=== PATIENT | female | born 1965 | race Caucasian/White ===

== ENCOUNTER 2017-02-12 22:33 | Emergency (ER) | payer OTHER ==
--- NOTE | 2017-02-12 23:57 | ED NECK/BACK PAIN COMPLAINT ---
History of Present Illness General Chief Complaint: Low Back Pain/Injury Stated Complaint: LOW BACK PAIN RADIATES TOABD Source: patient, old records, friend Exam Limitations: no limitations Vital Signs & Intake/Output Vital Signs & Intake/Output Vital Signs Date Time Temp Pulse Resp B/P B/P Pulse O2 O2 Flow FiO2 Mean Ox Delivery Rate 02/13 0107 96.4 66 18 109/71 98 Room Air 02/12 2241 98.1 85 22 147/97 98 Allergies Coded Allergies: No Known Allergies (02/12/17) Reconcile Medications Ketorolac Tromethamine 10 MG TABLET 1 TAB PO Q6P PRN PAIN BRENDAN RECEIVED IV TORADOL IN THE ER. Triage Note: PER PT UNABLE TO GET COMF D/T BACK PAIN X 2 DAYS NO URINE CO, POINTS TO FLANK AREA. REPORTS ALEVE WITH NO RELIEF. Triage Nurses Notes Reviewed? yes HPI: Patient presents with right flank pain that radiates down to his groin. Symptoms are worsening over the past 2 days. The pain worsens when she bends over or sits down. The pain lessens when she stands up straight. Patient was gardening the day before the symptoms started. There is no dysuria or hematuria. There is no urinary frequency. There is no nausea or vomiting. The pain is aching in nature. She rates the pain at 7 out of 10. Past History Travel History Traveled to [place] past 21 day No Medical History Any Pertinent Medical History? see below for history Neurological: NONE EENT: NONE Cardiovascular: NONE Respiratory: NONE Gastrointestinal: NONE Hepatic: NONE Renal: KIDNEY STONES Musculoskeletal: NONE Psychiatric: NONE Endocrine: NONE Surgical History Surgical History: non-contributory Psychosocial History What is your primary language Spanish Tobacco Use: Never used ETOH Use: occasional use Illicit Drug Use: denies illicit drug use Family History Hx Contributory? No Review of Systems Review of Systems Constitutional: Reports: no symptoms. Eyes: Reports: no symptoms. Ears, Nose, Throat, Mouth: Reports: no symptoms. Respiratory: Reports: no symptoms. Cardiovascular: Reports: no symptoms. Gastrointestinal/Abdominal: Reports: no symptoms. Musculoskeletal: Reports: see HPI, back pain. Skin: Reports: no symptoms. Neurological/Psychological: Reports: no symptoms. All Other Systems: Reviewed and Negative Physical Exam Physical Exam General Appearance: well developed/nourished, alert, awake, anxious, mild distress Head: atraumatic Eyes: Bilateral: PERRL, EOMI. Ears, Nose, Throat, Mouth: hearing grossly normal Neck: normal inspection, supple, full range of motion, no midline tenderness Respiratory: normal breath sounds, chest non-tender, no respiratory distress, lungs clear Cardiovascular: regular rate/rhythm, normal peripheral pulses Gastrointestinal: normal bowel sounds, soft, non-tender Back: normal inspection, CVA tenderness (R) Extremities: normal range of motion Straight Leg Raising: Right: Negative. Left: Negative. Neurologic/Psych: awake, alert, oriented x 3, normal mood/affect Skin: intact, normal color, warm/dry Progress Differential Diagnosis: herniated disc, myofascial strain, sciatica, T/L spine injury, ureterolithiasis Plan of Care: Orders Procedure Date/time Status CULTURE,URINE 02/12 2242 Active URINALYSIS 02/12 2242 Complete Laboratory Tests 02/12/172247: Urine Color YEL, Urine Clarity CLEAR, Urine pH 6.0, Ur Specific [place] 1.025, Urine Protein NEG, Urine Ketones NEG, Urine Nitrite NEG, Urine Bilirubin NEG, Urine Urobilinogen 0.2, Ur Leukocyte Esterase NEG, Ur Microscopic SEDIMENT EXAMINED, Urine RBC RARE, Ur Epithelial Cells FEW, Urine Bacteria RARE H, Urine Hemoglobin SMALL H, Urine Glucose NEG Microbiology 02/13 2248 URINE ROUT: Urine Culture - RECD Diagnostic Imaging: Viewed by Me: CT Scan. Discussed w/RAD: CT Scan. Radiology Impression: PATIENT: BRENDAN RUBIO PRESENT AGE: 51 PATIENT ACCOUNT NO: [id number] : 63 LOCATION: [facility] ORDERING PHYSICIAN: MERY CHANDLER MD SERVICE DATE: 02/13/17 EXAM TYPE: CAT - CT ABD & PELVIS W/O IV CONTRAS EXAMINATION: CT ABDOMEN AND PELVIS WITHOUT CONTRAST CLINICAL INFORMATION: Left flank pain. COMPARISON: None TECHNIQUE: Multidetector volumetric imaging was performed from the superior aspect of the liver through the pubic symphysis. Sagittal and coronal reformatted images were obtained on the technologist's workstation. DLP: 491 mGy-cm FINDINGS: LUNG BASES : There is a 0.5 cm right lower lobe pulmonary nodule series 2 image 4. There is an adjacent 0.3 cm right lower lobe nodule on image 1. The lung bases are otherwise clear. The visualized cardiac structures are unremarkable. LIVER, GALLBLADDER, AND BILIARY TREE: The liver is normal in size, shape, and attenuation. No focal hepatic lesion or biliary ductal dilatation is present. The gallbladder is unremarkable with no evidence of radiopaque gallstones, gallbladder wall thickening, or obvious pericholecystic inflammatory changes. PANCREAS: Unremarkable. SPLEEN: Unremarkable. ADRENAL GLANDS: Unremarkable. KIDNEYS AND URETERS: The kidneys are normal in size, shape, and attenuation. No hydronephrosis, hydroureter, or calculi seen. No perinephric stranding. BLADDER: Unremarkable. GASTROINTESTINAL TRACT: Surgical clips are seen in the region of the gastroesophageal junction. The stomach is unremarkable. The small bowel is unremarkable. No obstruction. Normal appendix. No colonic wall thickening or inflammatory change. Moderate colonic stool burden. No free air or free fluid. ABDOMINAL WALL: No significant hernia is appreciated. LYMPH NODES: Normal. VASCULAR: Mild atherosclerotic calcifications. PELVIC VISCERA: The uterus and adnexa are unremarkable. OSSEOUS STRUCTURES: No acute or suspicious osseous abnormality. Chronic appearing irregularity of the left iliac crest. IMPRESSION: 1. No hydronephrosis or nephrolithiasis. 2. Right lower lobe pulmonary nodules. No further follow-up needed in a low risk patient. Twelve-month follow-up could be considered in a high-risk patient. 3. Moderate colonic stool burden. DICTATED BY: CATHY PRIDE MD DATE/TIME DICTATED:02/13/1749 PULL OUT OPERATOR: ANDREA DATE/TIME TRANSCRIBED:02/13/1749 CONFIDENTIAL, DO NOT COPY WITHOUT APPROPRIATE AUTHORIZATION. <Electronically signed in Other Vendor System> SIGNED BY: CATHY PRIDE MD 02/13/1755 Departure Departure Disposition: HOME OR SELF CARE Condition: Stable Clinical Impression Primary Impression: Flank pain Referrals: MAGALIS STOLL,JOSE ARMANDO JUAN D.O. (PCP/Family) Additional Instructions: DRINK PLENTY OF FLUIDS RETURN FOR ANY CONCERNS Departure Forms: Customer Survey General Discharge Information Prescriptions: Current Visit Scripts Ketorolac Tromethamine 1 TAB PO Q6P PRN PAIN #20 TAB BRENDAN RECEIVED IV TORADOL IN THE ER.
--- NOTE | 2017-02-13 00:56 | CT SCAN REPORT ---
EXAMINATION: CT ABDOMEN AND PELVIS WITHOUT CONTRAST CLINICAL INFORMATION: Left flank pain. COMPARISON: None TECHNIQUE: Multidetector volumetric imaging was performed from the superior aspect of the liver through the pubic symphysis. Sagittal and coronal reformatted images were obtained on the technologist's workstation. DLP: 491 mGy-cm FINDINGS: LUNG BASES: There is a 0.5 cm right lower lobe pulmonary nodule series 2 image 4. There is an adjacent 0.3 cm right lower lobe nodule on image 1. The lung bases are otherwise clear. The visualized cardiac structures are unremarkable. LIVER, GALLBLADDER, AND BILIARY TREE: The liver is normal in size, shape, and attenuation. No focal hepatic lesion or biliary ductal dilatation is present. The gallbladder is unremarkable with no evidence of radiopaque gallstones, gallbladder wall thickening, or obvious pericholecystic inflammatory changes. PANCREAS: Unremarkable. SPLEEN: Unremarkable. ADRENAL GLANDS: Unremarkable. KIDNEYS AND URETERS: The kidneys are normal in size, shape, and attenuation. No hydronephrosis, hydroureter, or calculi seen. No perinephric stranding. BLADDER: Unremarkable. GASTROINTESTINAL TRACT: Surgical clips are seen in the region of the gastroesophageal junction. The stomach is unremarkable. The small bowel is unremarkable. No obstruction. Normal appendix. No colonic wall thickening or inflammatory change. Moderate colonic stool burden. No free air or free fluid. ABDOMINAL WALL: No significant hernia is appreciated. LYMPH NODES: Normal. VASCULAR: Mild atherosclerotic calcifications. PELVIC VISCERA: The uterus and adnexa are unremarkable. OSSEOUS STRUCTURES: No acute or suspicious osseous abnormality. Chronic appearing irregularity of the left iliac crest. IMPRESSION: 1. No hydronephrosis or nephrolithiasis. 2. Right lower lobe pulmonary nodules. No further follow-up needed in a low risk patient. Twelve-month follow-up could be considered in a high-risk patient. 3. Moderate colonic stool burden.
[2017-02-13 01:07] VITALS: BP 109/71
[2017-02-13] MEDS ORDERED: KETOROLAC TROME10 M1 PO (01:24)
== END 2017-02-13 01:35 ==
LOC: ERH 22:33
DX: R10.31 Right lower quadrant pain (principal)
CPT/HCPCS: 74176; 81001; 87086; J1885

== ENCOUNTER 2018-03-23 14:27 | Emergency (ER) | payer OTHER ==
[~2018-03-23] VITALS: Ht 167.6 cm; Wt 83.9 kg
[~2018-03-23 14:27] MED LIST: KETOROLAC TROME10 M1 PO
[2018-03-23 14:55] LABS: ABSOLUTE BASOPHIL COUNT 0 /CUMM (0.0-0.2); ABSOLUTE EOSINOPHIL COUNT 0 /CUMM (0.0-0.7); ABSOLUTE GRANULOCYTE CT 7.5 /CUMM (1.4-6.5); ABSOLUTE LYMPH COUNT 1.5 /CUMM (1.2-3.4); ABSOLUTE MONOCYTE COUNT 0.5 /CUMM (0.10-0.60); BASOPHIL % 0.2 % (0.0-2.0); EOSINOPHIL % 0.1 % (0-5); GRANULOCYTE % 79.1 % (42.2-75.2); HEMATOCRIT 43.4 % (37-47); MEAN CORPUSCULAR HGB 29.6 PG (27.0-31.0); MEAN CORPUSCULAR HGB CONC 32.9 G/DL (33.0-37.0); MEAN CORPUSCULAR VOLUME 90.1 FL (81.0-99.0); MEAN PLATELET VOLUME 7.6 FL (7.4-10.4); PLATELET COUNT 283 /CUMM (130-400); RBC DISTRIBUTION WIDTH 13.6 % (11.5-14.5); RED BLOOD CELL CT 4.82 /CUMM (4.20-5.40); WHITE BLOOD CELL COUNT 9.5 /CUMM (4.8-10.8)
--- NOTE | 2018-03-23 15:23 | ED GENERAL ADULT ---
History of Present Illness General Chief Complaint: General Adult Stated Complaint: +LOC LASTNIGHT, HIT HEAD Source: patient Exam Limitations: no limitations Vital Signs & Intake/Output Vital Signs & Intake/Output Vital Signs Date Time Temp Pulse Resp B/P B/P Pulse O2 O2 Flow FiO2 Mean Ox Delivery Rate 03/23 1600 Room Air 03/23 1434 98.6 89 18 145/91 97 Room Air Allergies Coded Allergies: No Known Allergies (02/12/17) Reconcile Medications Naproxen Sodium (Aleve) 220 MG TABLET 2 TAB PO DAILY PRN PAIN/INFLAMMATION ( Reported) Triage Note: 52 YO FEMALE TO TRIAGE FOR EVAL OF ?HEAD INJURY FROM LAST NIGHT. STATES LAST PM SHE WAS OUT DRINKING WITH HER FRIENDS AND STATES "I THINK I PASSED OUT" STATES "I DIDNT DRINK ENOUGH TO PASS OUT" NOTED WITH LARGE HEMATOMA TO R SIDE OF FOREHEAD, UNSURE OF WHAT HAPPENED. STATES +NAUSEA. Triage Nurses Notes Reviewed? yes Onset: Gradual Duration: hour(s): Timing: CONSTANT HPI: 52-year-old female with a history of peptic ulcers, status post fundoplication, renal stones presenting with a hematoma to her right forehead that she noticed when she woke up this morning. Patient states that she was out with her friends last night drinking alcohol, does not remember falling or striking her head, and is unsure where the hematoma came from. Reports that today she feels lethargic and nauseous. Denies headache, visual changes, vomiting/dry heaves. Patient is not on any anticoagulation. Past History Travel History Traveled to [place] past 21 day No Medical History Any Pertinent Medical History? see below for history Neurological: NONE EENT: NONE Cardiovascular: NONE Respiratory: NONE Gastrointestinal: peptic ulcer disease, S/P FUNDOPLICATION Hepatic: NONE Renal: KIDNEY STONES Musculoskeletal: NONE Psychiatric: NONE Endocrine: NONE Blood Disorders: NONE Cancer(s): NONE TRUCK LOADER/Reproductive: NONE Surgical History Surgical History: non-contributory Psychosocial History What is your primary language Chinese Tobacco Use: Never used Family History Hx Contributory? No Review of Systems Review of Systems Constitutional: Reports: no symptoms. EENTM: Reports: no symptoms. Respiratory: Reports: no symptoms. Cardiovascular: Reports: no symptoms. GI: Reports: see HPI. Genitourinary: Reports: no symptoms. Musculoskeletal: Reports: no symptoms. Skin: Reports: see HPI. Neurological/Psychological: Reports: no symptoms. Hematologic/Endocrine: Reports: no symptoms. Immunologic/Allergic: Reports: no symptoms. All Other Systems: Reviewed and Negative Physical Exam Physical Exam General Appearance: well developed/nourished, no apparent distress, alert, awake , comfortable Head: +hematoma to right forehead no gleason sign or racoon eyes Eyes: Bilateral: normal appearance, PERRL, EOMI. 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 No CVA/TIA Diagnosis: No Sepsis Present: No Sepsis Focused Exam Completed? No Progress Differential Diagnoses I considered the following diagnoses in my evaluation of the patient: [Hematoma versus head contusion versus concussion versus ICH versus vertebral fracture] Plan of Care: Orders Procedure Date/time Status Add-on Test (ER Only) 03/23 1551 Active CULTURE,URINE 03/23 1452 Active URINE DRUG SCREEN FOR ER ONLY 03/23 1434 Complete URINALYSIS 03/23 1434 Complete TROPONIN LEVEL 03/23 1434 Complete PROLACTIN 03/23 1434 Complete ETHANOL 03/23 1434 Complete COMPREHENSIVE METABOLIC PANEL 03/23 1434 Complete CBC WITHOUT DIFFERENTIAL 03/23 1434 Complete Laboratory Tests 03/23/18 1452: Urine Opiates Screen < 100, Methadone Screen < 40, Barbiturate Screen < 60, Ur Phencyclidine Scrn < 6.00, Amphetamines Screen < 100, U Benzodiazepines Scrn < 85, Urine Cocaine Screen < 50, Urine Cannabis Screen < 5.00, Urinalysis LIGHT H , Urine Color YEL, Urine Clarity HAZY H, Urine pH 6.0, Ur Specific [place] >= 1.030, Urine Protein TRACE H, Urine Ketones TRACE H, Urine Nitrite NEG, Urine Bilirubin NEG, Urine Urobilinogen 0.2, Ur Leukocyte Esterase NEG, Ur Microscopic SEDIMENT EXAMINED, Urine RBC 10-15 H, Urine WBC 10-15 H, Ur Epithelial Cells MANY H, Urine Bacteria MANY H, Urine Mucus MOD H, Urine Hemoglobin SMALL H, Urine Glucose NEG 03/23/18 1446: Anion Gap 12, Estimated GFR > 60, BUN/Creatinine Ratio 28.6 H, Glucose 97, Calcium 9.9, Total Bilirubin 1.1, AST 37 H, ALT 48, Alkaline Phosphatase 78, Troponin I < 0.01, Total Protein 7.9, Albumin 4.6, Globulin 3.3, Albumin/ Globulin Ratio 1.4, Prolactin 8.6, CBC w Diff NO MAN DIFF REQ, RBC 4.82, MCV 90.1, MCH 29.6, MCHC 32.9 L, RDW 13.6, MPV 7.6, Gran % 79.1 H, Lymphocytes % 15.4 L, Monocytes % 5.2, Eosinophils % 0.1, Basophils % 0.2, Absolute Granulocytes 7.5 H, Absolute Lymphocytes 1.5, Absolute Monocytes 0.5, Absolute Eosinophils 0, Absolute Basophils 0, Serum Alcohol < 10.0 Microbiology 03/23 1452 URINE ROUT: Urine Culture - RECD Labs unremarkable UA was a dirty catch, pt denies urinary symptoms, will sent urine culture and hold on abx at this time. CT scan IMPRESSION: CT scan of the head: Small scalp hematoma in the right frontal region. No acute intracranial pathology. CT scan of the cervical spine: No evidence of cervical spine fracture or malalignment. Mild to moderate degenerative changes in the mid and lower cervical spine. Incidental finding of a 3 mm solid noncalcified pulmonary nodule in the right lung apex. This is of doubtful clinical significance. If the patient has no underlying risk factors, no further follow-up is required. If the patient has known underlying risk factors, optional CT scan follow-up with chest CT scan in 12 months is recommended. Pt informed of above incidental findings. Likely with head contusion vs concussion. Counseled on supportive care, rx zofran for nausea, given strict return precautions, will f/u with PMD. Initial ED EKG: none Departure Departure Disposition: HOME OR SELF CARE Condition: Stable Clinical Impression Primary Impression: Traumatic hematoma of head Secondary Impressions: Closed head injury Referrals: Emerald Naik DO (PCP/Family) Additional Instructions: Use Tylenol or ibuprofen as needed for pain. Use Zofran as needed for nausea. Follow-up with your primary care provider for reevaluation. Return to the emergency department for any new or worsening symptoms. Departure Forms: Customer Survey General Discharge Information Critical Care Note Critical Care Note Critical Care Time: non-applicable
--- NOTE | 2018-03-23 16:16 | CT SCAN REPORT ---
EXAMINATION: CT OF THE HEAD WITHOUT CONTRAST CT OF THE CERVICAL SPINE WITHOUT CONTRAST CLINICAL INFORMATION: Loss of consciousness. EtOH last night. Scalp hematoma. COMPARISON: None. TECHNIQUE: Contiguous axial imaging was performed from the skullbase to vertex without intravenous administration of contrast. Coronal reformations of the head were obtained. Contiguous axial imaging was then performed from the skull base down to the thoracic inlet. Coronal and sagittal reformations of the cervical spine were obtained. DLP: 973.59 mGy-cm. FINDINGS: CT scan of the head: There is no evidence of acute intracranial hemorrhage or territorial infarction. No abnormal mass-effect or midline shift is seen. Sosa to white matter differentiation is well preserved. No extra-axial fluid collections are identified. The ventricles are normal in size. There is no abnormal attenuation within the brain parenchyma. There is a small soft tissue hematoma in the right frontal region. The osseous structures and soft tissues are normal. The mastoid air cells and visualized portions of the paranasal sinuses are well-aerated. CT scan of the cervical spine: There is a slight reversal of the normal cervical lordosis in the mid cervical spine, perhaps related to patient positioning within the gantry. Alignment is otherwise normal with no evidence of acute fracture or dislocation. Craniocervical junction and atlantoaxial articulations are intact. Prevertebral soft tissues are normal in thickness. Mild degenerative changes are seen at the atlantoaxial articulation. There is also mild to moderate degenerative disc disease from C3-C4 down to C6-C7 with small posterior disc osteophyte complexes seen projecting into the spinal canal and indenting the thecal sac. The included soft tissues of the neck are unremarkable. There is a 3 mm solid noncalcified pulmonary nodule in the right lung apex (series 8, image 325). The included lung apices are otherwise unremarkable. IMPRESSION: CT scan of the head: Small scalp hematoma in the right frontal region. No acute intracranial pathology. CT scan of the cervical spine: No evidence of cervical spine fracture or malalignment. Mild to moderate degenerative changes in the mid and lower cervical spine. Incidental finding of a 3 mm solid noncalcified pulmonary nodule in the right lung apex. This is of doubtful clinical significance. If the patient has no underlying risk factors, no further follow-up is required. If the patient has known underlying risk factors, optional CT scan follow-up with chest CT scan in 12 months is recommended.
[2018-03-23] MEDS ORDERED: ALEVE220 M2 PO (16:18)
[2018-03-23] MEDS ORDERED: ZOFRAN ODT4 M1 SL (16:35)
[2018-03-23 16:43] VITALS: BP 138/90
== END 2018-03-23 16:44 ==
LOC: ERH 14:27
PROVIDERS: Physician Assistant
DX: S00.93XA Contusion of unspecified part of head, initial encounter (principal); S09.90XA Unspecified injury of head, initial encounter; X58.XXXA Exposure to other specified factors, initial encounter; Y92.9 Unspecified place or not applicable; Y93.9 Activity, unspecified
CPT/HCPCS: 80307; 81001; 87071; 87086; G0480; J3101